=== PATIENT | male | born 1985 | race African-American/Black ===

== ENCOUNTER 2016-09-29 18:32 | Emergency (ER) | payer SELFPAY ==
[2016-09-29] MEDS ORDERED: Ketorolac 30 MG/ML SDV IVPUSH ONE (19:08)
[2016-09-29] MEDS ORDERED: Sodium Chloride 0.9% 10 ML Syringe FLUSH PRN (19:08)
[2016-09-29] MEDS ORDERED: Sodium Chloride 0.9% 2.5 ML Syringe FLUSH PRN (19:08)
[2016-09-29] MEDS ORDERED: Sodium Chloride 0.9% 1,000 ML IV ONE (19:08)
--- NOTE | 2016-09-29 19:12 | EDM.PDOC ---
ED HPI GENERAL MEDICAL PROBLEM - General Chief Complaint: Headache Stated Complaint: HEADACHE/DEHYDRATED Time Seen by Provider: 09/29/16 18:58 - History of Present Illness INITIAL COMMENTS - FREE TEXT/NARRATIVE: HISTORY AND PHYSICAL: History of present illness: The patient is a 30-year-old man who has no provider and no stated medical problems who presents with 2 complaints; first he has had a headache at his temples for 2 days which he says is very dull nonradiating and not associated with fever nausea vomiting upper respiratory symptoms or any other complaints. He rates it as a 2/10. He has not taken any [id number] medications to try to help it. He also presents with a five-month history of polyuria polydipsia and no weight loss of 40 pounds. He denies any abdominal complaints and says he' s been eating his meals and not trying to lose weight. He also complains of some tooth pain at the right upper mouth area but there is no swelling. The patient states that with all these problems he has not sought any medical treatment until today and there is nothing in particular that is changed these symptoms other than the slight headache that prompted him come in. He has no muscle weakness no chest pain no shortness of breath no fevers or chills Review of systems: As per history of present illness and below otherwise all systems reviewed and negative. Past medical history: As per history of present illness and as reviewed below otherwise noncontributory. Surgical history: As per history of present illness and as reviewed below otherwise noncontributory. Social history: No reported history of drug or alcohol abuse. Family history: As per history of present illness and as reviewed below otherwise noncontributory. Physical exam: General: Well-developed thin man who is nontoxic and speaking clearly and easily in ED. He is not in any distress HEENT: Atraumatic, normocephalic, pupils reactive, negative for conjunctival pallor or scleral icterus, mucous membranes moist, throat clear, neck supple, nontender, trachea midline. There is no nuchal rigidity or cervical adenopathy, there is no sinus tenderness on palpation, there is no TMJ tenderness, there is mild tenderness at the temples bilaterally left greater than right without any soft tissue swelling or temporal artery tenderness. There is a dental cavity noted at the right upper maxillary area without swelling or facial swelling. Lungs: Clear to auscultation, breath sounds equal bilaterally, chest nontender. Heart: S1S2, regular, negative for clicks, rubs, or JVD. Abdomen: Soft, nondistended, nontender. NABS Genitourinary: Deferred. Rectal: Deferred. Extremities: Atraumatic, negative for cords or calf pain. Neurovascular unremarkable. Neuro: Awake, alert, oriented. Cranial nerves II through XII unremarkable. Cerebellum unremarkable. Motor and sensory unremarkable throughout. Exam nonfocal. Diagnostics: CBC CMP UA serum ketones Therapeutics: IV fluids Toradol 2026: Case was discussed with our hospitalist who agrees he does not need admission but does need to have a hemoglobin A1c sent to be checked in the clinic and we can start him on Glucophage 1000 mg twice a day. I've advised the patient that he is a diabetic and he meets followup in the clinic and that he needs to start these medications. I advised him on diet and things to watch out for and reasons to return to the ED. I've also advised him to use Tylenol or prescribed ibuprofen for his headaches and if they persisted they can also be discussed with primary care. Impression: Headache, new onset diabetes without acidosis or ketosis stable Definitive disposition and diagnosis as appropriate pending reevaluation and review of above. Headache Pain Score (Numeric/FACES): 3 - Related Data Allergies Allergy/AdvReac Type Severity Reaction Status Date / Time No Known Allergies Allergy Verified 09/29/16 18:41 Home Meds: Home Meds . [No Known Home Meds] 09/29/16 [History] Past Medical History - Past Health History Medical/Surgical History: Denies Medical/Surgical History Social & Family History - Family History Family Medical History: Noncontributory - Tobacco Use Smoking Status *Q: Never Smoker Second Hand Smoke Exposure: No - Caffeine Use Caffeine Use: Reports: Coffee, Soda Caffeine Use Comment: 2 cup per day - Alcohol Use Days Per Week of Alcohol Use: 2 Number of Drinks Per Day: 2 Total Drinks Per Week: 4 - Recreational Drug Use Recreational Drug Use: No ED ROS GENERAL - Review of Systems Review Of Systems: ROS reveals no pertinent complaints other than HPI. ED EXAM, GENERAL - Physical Exam Exam: See Below (See dictation) Course - Vital Signs Last Recorded V/S: Last Vital Signs Temp 36.4 C 09/29/16 18:41 Pulse 65 09/29/16 18:41 Resp 18 09/29/16 18:41 BP 154/88 H 09/29/16 18:41 Pulse Ox 98 09/29/16 18:41 - Orders/Labs/Meds Orders: Active Orders 24 hr Category Date Time Status GLYCOSYLATED HEMOGLOBIN,HGBA1C [CHEM] Stat Lab 09/29/16 20:27 Ordered Sodium Chloride 0.9% [Saline Flush] Med 09/29/16 19:08 Active 10 ml FLUSH ASDIRECTED PRN Sodium Chloride 0.9% [Saline Flush] Med 09/29/16 19:08 Active 2.5 ml FLUSH ASDIRECTED PRN Saline Lock Insert [OM.PC] Stat Oth 09/29/16 19:08 Ordered Medication Orders Sodium Chloride (Saline Flush) 10 ml FLUSH ASDIRECTED PRN PRN Reason: Keep Vein Open Last Admin: 09/29/16 19:18 Dose: 10 ml Sodium Chloride (Saline Flush) 2.5 ml FLUSH ASDIRECTED PRN PRN Reason: Keep Vein Open Last Admin: 09/29/16 19:18 Dose: 2.5 ml Labs: Laboratory Tests 09/29/16 09/29/16 09/29/16 Range/Units 19:05 19:11 19:11 WBC 5.19 (4.0-11.0) K/uL RBC 4.83 (4.50-5.90) M/uL Hgb 14.0 (13.0-17.0) g/dL Hct 39.1 (38.0-50.0) % MCV 81.0 (80.0-98.0) fL MCH 29.0 (27.0-32.0) pg MCHC 35.8 (31.0-37.0) g/dL RDW Std Deviation 36.9 (28.0-62.0) fl RDW Coeff of Chuck 13 (11.0-15.0) % Plt Count 264 (150-400) K/uL MPV 10.70 (7.40-12.00) fL Neut % (Auto) 45.8 L (48.0-80.0) % Lymph % (Auto) 43.4 H (16.0-40.0) % [place] % (Auto) 8.3 (0.0-15.0) % Eos % (Auto) 1.9 (0.0-7.0) % Baso % (Auto) 0.6 (0.0-1.5) % Neut # (Auto) 2.4 (1.4-5.7) K/uL Lymph # (Auto) 2.3 (0.6-2.4) K/uL [place] # (Auto) 0.4 (0.0-0.8) K/uL Eos # (Auto) 0.1 (0.0-0.7) K/uL Baso # (Auto) 0.0 (0.0-0.1) K/uL Nucleated RBC % 0.0 /100WBC Nucleated RBCs # 0 K/uL Sodium 133 L (136-146) mmol/L Potassium 4.2 (3.5-5.1) mmol/L Chloride 101 (98-110) mmol/L Carbon Dioxide 24 (21-31) mmol/L BUN 8 (6.0-23.0) mg/dL Creatinine 0.9 (0.6-1.5) mg/dL Est Cr Clr Drug Dosing 123.20 mL/min Estimated GFR (MDRD) > 60.0 ml/min Glucose 329 H (60-110) mg/dL Calcium 8.9 (8.8-10.8) mg/dL Total Bilirubin 0.8 (0.1-1.5) mg/dL AST 18 (5-40) IU/L ALT 14 (8-54) IU/L Alkaline Phosphatase 60 (40-150) Total Protein 7.0 (6.0-8.0) g/dL Albumin 4.1 (3.5-5.0) g/dL Globulin 2.9 (2.0-3.5) g/dL Albumin/Globulin Ratio 1.4 (1.3-2.8) Urine Color YELLOW Urine Appearance CLEAR Urine pH 5.5 (5.0-8.0) Ur Specific [place] 1.010 (1.001-1.035) Urine Protein NEGATIVE (NEGATIVE) mg/dL Urine Glucose (UA) >=1000 (NEGATIVE) mg/dL Urine Ketones 15 H (NEGATIVE) mg/dL Urine Occult Blood NEGATIVE (NEGATIVE) Urine Nitrite NEGATIVE (NEGATIVE) Urine Bilirubin NEGATIVE (NEGATIVE) Urine Urobilinogen 0.2 (<2.0) EU/dL Ur Leukocyte Esterase NEGATIVE (NEGATIVE) Urine RBC 0-2 (0-2/HPF) Urine WBC 0-1 (0-5/HPF) Ur Epithelial Cells RARE (NONE-FEW) Urine Bacteria RARE (NEGATIVE) Ketones (NEG) 09/29/16 Range/Units 19:11 WBC (4.0-11.0) K/uL RBC (4.50-5.90) M/uL Hgb (13.0-17.0) g/dL Hct (38.0-50.0) % MCV (80.0-98.0) fL MCH (27.0-32.0) pg MCHC (31.0-37.0) g/dL RDW Std Deviation (28.0-62.0) fl RDW Coeff of Chuck (11.0-15.0) % Plt Count (150-400) K/uL MPV (7.40-12.00) fL Neut % (Auto) (48.0-80.0) % Lymph % (Auto) (16.0-40.0) % [place] % (Auto) (0.0-15.0) % Eos % (Auto) (0.0-7.0) % Baso % (Auto) (0.0-1.5) % Neut # (Auto) (1.4-5.7) K/uL Lymph # (Auto) (0.6-2.4) K/uL [place] # (Auto) (0.0-0.8) K/uL Eos # (Auto) (0.0-0.7) K/uL Baso # (Auto) (0.0-0.1) K/uL Nucleated RBC % /100WBC Nucleated RBCs # K/uL Sodium (136-146) mmol/L Potassium (3.5-5.1) mmol/L Chloride (98-110) mmol/L Carbon Dioxide (21-31) mmol/L BUN (6.0-23.0) mg/dL Creatinine (0.6-1.5) mg/dL Est Cr Clr Drug Dosing mL/min Estimated GFR (MDRD) ml/min Glucose (60-110) mg/dL Calcium (8.8-10.8) mg/dL Total Bilirubin (0.1-1.5) mg/dL AST (5-40) IU/L ALT (8-54) IU/L Alkaline Phosphatase (40-150) Total Protein (6.0-8.0) g/dL Albumin (3.5-5.0) g/dL Globulin (2.0-3.5) g/dL Albumin/Globulin Ratio (1.3-2.8) Urine Color Urine Appearance Urine pH (5.0-8.0) Ur Specific [place] (1.001-1.035) Urine Protein (NEGATIVE) mg/dL Urine Glucose (UA) (NEGATIVE) mg/dL Urine Ketones (NEGATIVE) mg/dL Urine Occult Blood (NEGATIVE) Urine Nitrite (NEGATIVE) Urine Bilirubin (NEGATIVE) Urine Urobilinogen (<2.0) EU/dL Ur Leukocyte Esterase (NEGATIVE) Urine RBC (0-2/HPF) Urine WBC (0-5/HPF) Ur Epithelial Cells (NONE-FEW) Urine Bacteria (NEGATIVE) Ketones NEGATIVE (NEG) Meds: Medications Generic Name Dose Route Start Last Admin Trade Name Freq PRN Reason Stop Dose Admin Sodium Chloride 10 ml 09/29/16 19:08 09/29/16 19:18 Saline Flush FLUSH 10 ml ASDIRECTED PRN Administration Keep Vein Open Sodium Chloride 2.5 ml 09/29/16 19:08 09/29/16 19:18 Saline Flush FLUSH 2.5 ml ASDIRECTED PRN Administration Keep Vein Open Discontinued Medications Generic Name Dose Route Start Last Admin Trade Name Freq PRN Reason Stop Dose Admin Sodium Chloride 1,000 mls @ 999 mls/hr 09/29/16 19:08 09/29/16 19:17 Normal Saline IV 09/29/16 20:08 999 mls/hr STAT ONE Administration Ketorolac Tromethamine 30 mg 09/29/16 19:08 09/29/16 19:17 Toradol IVPUSH 09/29/16 19:09 30 mg ONETIME ONE Administration Departure - Departure Time of Disposition: 20:29 Disposition: Home, Self-Care 01 Condition: good Clinical Impression: Diabetes mellitus, new onset Headache Qualifiers: Headache type: unspecified Headache chronicity pattern: acute headache Intractability: not intractable Qualified Code(s): R51 - Headache Forms: ED Department Discharge Additional Instructions: The following information is given to patients seen in the emergency department who are being discharged to home. This information is to outline your options for follow-up care. We provide all patients seen in our emergency department with a follow-up referral. The need for follow-up, as well as the timing and circumstances, are variable depending upon the specifics of your emergency department visit. If you don't have a primary care physician on staff, we will provide you with a referral. We always advise you to contact your personal physician following an emergency department visit to inform them of the circumstance of the visit and for follow-up with them and/or the need for any referrals to a consulting specialist. The emergency department will also refer you to a specialist when appropriate. This referral assures that you have the opportunity for followup care with a specialist. All of these measure are taken in an effort to provide you with optimal care, which includes your followup. Under all circumstances we always encourage you to contact your private physician who remains a resource for coordinating your care. When calling for followup care, please make the office aware that this follow-up is from your recent emergency room visit. If for any reason you are refused follow-up, please contact the [facility] emergency department at and ask to speak to the emergency department charge nurse. [facility] Primary care- [place] [address] Please call the clinic tomorrow for an expedited followup and please mention that you're in the emergency department and need a followup appointment. Please take medications as prescribed and try to watch your diet avoiding sweets juices and other concentrated sugars. Take [id number] Tylenol or prescribed ibuprofen for your headaches and return here as needed and as discussed - My Orders Last 24 Hours: My Active Orders 09/29/16 19:08 Sodium Chloride 0.9% [Saline Flush] 10 ml FLUSH ASDIRECTED PRN Sodium Chloride 0.9% [Saline Flush] 2.5 ml FLUSH ASDIRECTED PRN Saline Lock Insert [OM.PC] Stat 09/29/16 20:27 GLYCOSYLATED HEMOGLOBIN,HGBA1C [CHEM] Stat - Assessment/Plan Last 24 Hours: My Active Orders 09/29/16 19:08 Sodium Chloride 0.9% [Saline Flush] 10 ml FLUSH ASDIRECTED PRN Sodium Chloride 0.9% [Saline Flush] 2.5 ml FLUSH ASDIRECTED PRN Saline Lock Insert [OM.PC] Stat 09/29/16 20:27 GLYCOSYLATED HEMOGLOBIN,HGBA1C [CHEM] Stat
[2016-09-29 19:52] LABS: CHLORIDE,CL 101 mmol/L (98-110); SODIUM,NA 133 mmol/L (136-146)
[2016-09-29 20:54] VITALS: BP 131/78
== END 2016-09-29 20:54 | disposition home or self-care (01) ==
LOC: MW.ED 18:32
DX: R51 Headache (principal); E11.9 Type 2 diabetes mellitus without complications
CPT/HCPCS: 36415; 80053; 81001; 82009; 83036; 85025; 96361; 96374; 99284; J1885; J7040

== ENCOUNTER → 2016-10-08 | Outpatient (CLI) | payer SELFPAY | LOC: MW.CHIM 07:31 | PROVIDERS: ATTEND Internal Medicine | DX: Z00.00 Encounter for general adult medical examination without abnormal findings (principal); E13.9 Other specified diabetes mellitus without complications | CPT/HCPCS: 36415; 80061; 84681 ==

== ENCOUNTER 2019-10-07 10:10 | Observation (INO) | payer SELFPAY ==
--- NOTE | 2019-10-07 10:35 | EDM.PDOC ---
ED HPI GENERAL MEDICAL PROBLEM - General Chief Complaint: Fever Stated Complaint: FEVER/CHILLS/WEAK Time Seen by Provider: 10/07/19 10:20 Source of Information: Reports: Patient History Limitations: Reports: No Limitations - History of Present Illness INITIAL COMMENTS - FREE TEXT/NARRATIVE: This 33 year old male is admitted to the ED with a chief complaint of bilateral flank pain (that has gotten better) with painful urination for the past two days. He also complains of fever and chills over the past two days with generalized weakness. He denies chest pain, cough or SOB. He denies any GI complaints at this time. He denies any other complaints. Onset: Gradual Duration: Intermittent Severity: Mild (to moderate) Associated Symptoms: Reports: Fever/Chills, Weakness. Denies: Chest Pain, Cough , Nausea/Vomiting, Shortness of Breath Bilateral Flank Pain Score (Numeric/FACES): 5 - Related Data Allergies Allergy/AdvReac Type Severity Reaction Status Date / Time No Known Allergies Allergy Verified 10/07/19 10:22 Home Meds: Home Meds metFORMIN HCl [Glucophage] 2,000 mg PO BID 10/07/19 [History] Past Medical History - Past Health History Medical/Surgical History: Denies Medical/Surgical History Social & Family History - Family History Family Medical History: Noncontributory - Caffeine Use Caffeine Use: Reports: Coffee, Soda Caffeine Use Comment: 2 cup per day ED ROS GENERAL - Review of Systems Review Of Systems: See Below Constitutional: Reports: Fever, Chills, Weakness HEENT: Reports: No Symptoms Respiratory: Reports: No Symptoms Cardiovascular: Reports: No Symptoms Endocrine: Reports: No Symptoms GI/Abdominal: Reports: No Symptoms. Denies: Abdominal Pain : Reports: Flank Pain (bilateral), Pain (painful urination.) Musculoskeletal: Reports: No Symptoms Skin: Reports: No Symptoms ED EXAM, GENERAL - Physical Exam Exam: See Below Exam Limited By: No Limitations General Appearance: Alert, WD/WN, No Apparent Distress Ears: Normal External Exam, Normal Canal, Normal TMs Ear Exam: Bilateral Ear: Auricle Normal, Canal Normal, TM normal Nose: Normal Inspection, Normal Mucosa Throat/Mouth: Normal Inspection, Normal Oropharynx Head: Atraumatic, Normocephalic Neck: Normal Inspection, Supple, Full Range of Motion Respiratory/Chest: No Respiratory Distress, Lungs Clear, Normal Breath Sounds, Chest Non-Tender Cardiovascular: Normal Peripheral Pulses, Regular Rate, Rhythm, No Edema, No Murmur Peripheral Pulses: 3+: Radial (L), Radial (R), Dorsalis Pedis (L), Dorsalis Pedis (R) GI/Abdominal: Normal Bowel Sounds, Soft, Non-Tender, No Organomegaly, No Abnormal Bruit, No Mass (Male) Exam: Deferred Rectal (Males) Exam: Deferred Back Exam: No: CVA Tenderness (L), Paraspinal Tenderness Extremities: Normal Inspection, Normal Range of Motion, Non-Tender, Normal Capillary Refill, No Pedal Edema Neurological: Alert, Oriented, CN II-XII Intact, Normal Cognition, Normal Gait, Normal Reflexes, No Motor/Sensory Deficits Psychiatric: Normal Affect, Normal Mood Skin Exam: Warm, Dry, Intact, Normal Color, No Rash Course - Vital Signs Text/Narrative:: I talked with Dr. Pineda at 1:42PM. We will admitted with a diagnosis of pyelonephritis. The patient agrees with the admission. Last Recorded V/S: Last Vital Signs Temp 97.7 F 10/07/19 13:18 Pulse 81 10/07/19 13:18 Resp 16 10/07/19 13:18 BP 120/76 10/07/19 13:18 Pulse Ox 96 10/07/19 13:18 - Orders/Labs/Meds Orders: Active Orders 24 hr Category Date Time Status CULTURE BLOOD [BC] Stat Lab 10/07/19 13:46 Ordered CULTURE BLOOD [BC] Stat Lab 10/07/19 13:46 Ordered Blood Culture x2 Reflex Set [OM.PC] Stat Oth 10/07/19 13:46 Ordered Labs: Laboratory Tests 10/07/19 10/07/19 10/07/19 Range/Units 10:20 10:42 10:42 WBC 19.09 H (4.0-11.0) K/uL RBC 5.02 (4.50-5.90) M/uL Hgb 14.4 (13.0-17.0) g/dL Hct 41.4 (38.0-50.0) % MCV 82.5 (80.0-98.0) fL MCH 28.7 (27.0-32.0) pg MCHC 34.8 (31.0-37.0) g/dL RDW Std Deviation 36.9 (28.0-62.0) fl RDW Coeff of Chuck 12 (11.0-15.0) % Plt Count 226 (150-400) K/uL MPV 10.10 (7.40-12.00) fL Neut % (Auto) 83.4 H (48.0-80.0) % Lymph % (Auto) 8.7 L (16.0-40.0) % [place] % (Auto) 7.6 (0.0-15.0) % Eos % (Auto) 0.1 (0.0-7.0) % Baso % (Auto) 0.2 (0.0-1.5) % Neut # (Auto) 15.9 H (1.4-5.7) K/uL Lymph # (Auto) 1.7 (0.6-2.4) K/uL [place] # (Auto) 1.5 H (0.0-0.8) K/uL Eos # (Auto) 0.0 (0.0-0.7) K/uL Baso # (Auto) 0.0 (0.0-0.1) K/uL Nucleated RBC % 0.0 /100WBC Nucleated RBCs # 0 K/uL Sodium 136 (136-148) mmol/L Potassium 3.5 (3.5-5.1) mmol/L Chloride 99 (98-107) mmol/L Carbon Dioxide 27.4 (21.0-32.0) mmol/L BUN 15 (7.0-18.0) mg/dL Creatinine 1.1 (0.8-1.3) mg/dL Est Cr Clr Drug Dosing 104.84 mL/min Estimated GFR (MDRD) > 60.0 ml/min Glucose 166 H (74-106) mg/dL Calcium 8.2 L (8.5-10.1) mg/dL Magnesium 1.6 L (1.8-2.4) mg/dL Total Bilirubin 1.3 H (0.2-1.0) mg/dL AST 21 (15-37) IU/L ALT 57 (14-63) IU/L Alkaline Phosphatase 63 (46-116) U/L Total Protein 7.3 (6.4-8.2) g/dL Albumin 3.4 (3.4-5.0) g/dL Globulin 3.9 (2.6-4.0) g/dL Albumin/Globulin Ratio 0.9 (0.9-1.6) Urine Color YELLOW Urine Appearance CLOUDY Urine pH 6.0 (5.0-8.0) Ur Specific [place] 1.025 (1.001-1.035) Urine Protein 100 H (NEGATIVE) mg/dL Urine Glucose (UA) NEGATIVE (NEGATIVE) mg/dL Urine Ketones NEGATIVE (NEGATIVE) mg/dL Urine Occult Blood LARGE H (NEGATIVE) Urine Nitrite NEGATIVE (NEGATIVE) Urine Bilirubin NEGATIVE (NEGATIVE) Urine Urobilinogen 0.2 (<2.0) EU/dL Ur Leukocyte Esterase LARGE H (NEGATIVE) Urine RBC TOO NUMEROUS TO CT (0-2/HPF) Urine WBC TO NUMEROUS TO COUNT H (0-5/HPF) Ur Epithelial Cells FEW (NONE-FEW) Urine Bacteria 2+ H (NEGATIVE) Urine Mucus LIGHT (NONE-MOD) Meds: Medications Discontinued Medications Generic Name Dose Route Start Last Admin Trade Name Markq PRN Reason Stop Dose Admin Ceftriaxone Sodium 1 gm 10/07/19 13:46 Rocephin IVPUSH 10/07/19 13:47 ONETIME ONE Sodium Chloride 1,000 mls @ 999 mls/hr 10/07/19 11:07 10/07/19 11:50 Normal Saline IV 10/07/19 12:07 999 mls/hr STAT ONE Administration Levofloxacin/Dextrose 750 mg/ 150 mls @ 100 mls/hr 10/07/19 13:45 Premix IV Q24H JAMAL Iopamidol 100 ml 10/07/19 12:08 10/07/19 12:09 Isovue Multipack-370 (76%) IVPUSH 10/07/19 12:09 100 ml ONETIME ONE Administration Departure - Departure Time of Disposition: 13:50 Disposition: Refer to Observation Condition: Fair Clinical Impression: Pyelonephritis, acute - Discharge Information *PRESCRIPTION DRUG MONITORING PROGRAM REVIEWED*: Yes *COPY OF PRESCRIPTION DRUG MONITORING REPORT IN PATIENT NEISHA: Yes Referrals: PCP,None [Primary Care Provider] - Sepsis Event Note - Focused Exam Vital Signs: Vital Signs Temp Pulse Resp BP Pulse Ox 10/07/19 13:18 97.7 F 81 16 120/76 96 10/07/19 10:22 97.9 F 83 16 145/76 H 98 Date Exam was Performed: 10/07/19 Time Exam was Performed: 13:47 - My Orders Last 24 Hours: My Active Orders 10/07/19 13:46 CULTURE BLOOD [BC] Stat CULTURE BLOOD [BC] Stat Blood Culture x2 Reflex Set [OM.PC] Stat - Assessment/Plan Last 24 Hours: My Active Orders 10/07/19 13:46 CULTURE BLOOD [BC] Stat CULTURE BLOOD [BC] Stat Blood Culture x2 Reflex Set [OM.PC] Stat
[2019-10-07] MEDS ORDERED: Sodium Chloride 0.9% 1,000 ML IV ONE (11:07)
[2019-10-07 11:13] LABS: BLOOD UREA NITROGEN,BUN 15 mg/dL (7.0-18.0); CARBON DIOXIDE,CO2 27.4 mmol/L (21.0-32.0); CHLORIDE,CL 99 mmol/L (98-107); GLUCOSE RANDOM 166 mg/dL (74-106); POTASSIUM,K 3.5 mmol/L (3.5-5.1); SODIUM,NA 136 mmol/L (136-148)
--- NOTE | 2019-10-07 11:18 | CR ---
Chest: 2 views of the chest were obtained. Comparison: No prior chest imaging is available. Heart size and mediastinum are normal. Lungs are clear with no acute parenchymal change. Bony structures are unremarkable. Impression: 1. Nothing acute is seen on 2 view chest x-ray. Diagnostic code #1 This report was dictated in MDT
[2019-10-07] MEDS ORDERED: Iopamidol 755 MG/ML 200 ML Multipack Bottle IVPUSH ONE (12:08)
--- NOTE | 2019-10-07 12:38 | CT ---
CT abdomen and pelvis Technique: Multiple axial sections were obtained from above the dome of the diaphragm inferiorly through the pubic symphysis. Intravenous contrast was utilized. Delayed images were obtained through the bladder. Findings: Visualized lung bases show nothing acute. Liver contains no focal parenchymal abnormality. Spleen appears within normal limits. Adrenal glands show no nodule. Pancreas shows no abnormality. Kidneys show symmetric contrast enhancement without hydronephrosis or mass. Aorta shows no aneurysm. No retroperitoneal adenopathy or mesenteric abnormalities are seen. Fat-containing umbilical hernia is noted. No pelvic mass or adenopathy is seen. Bladder wall is slightly thickened which could relate to cystitis as well as being under distended. No free fluid or inflammatory change is seen. Appendix is seen which is normal in size. Slight increased stool is noted within the colon. Bone window settings were reviewed. No acute osseous finding is appreciated. Impression: 1. Bladder wall thickening either due to under distention or cystitis. 2. Mild increased stool throughout the colon. 3. No acute abnormality is otherwise seen on CT study of the abdomen and pelvis. Diagnostic code #2 This report was dictated in MDT
[2019-10-07] MEDS ORDERED: Levofloxacin/Dextrose 5%-Water 750 MG in Premix Bag 1 BAG IV SCH (13:45)
[2019-10-07] MEDS ORDERED: cefTRIAXone 1 GM Vial IVPUSH ONE (13:46)
[2019-10-07] MEDS ORDERED: cefTRIAXone 1 GM in Premix Bag 1 BAG IV ONE (14:13)
[2019-10-07] MEDS ORDERED: Albuterol/Ipratropium 3.0-0.5 MG/3 ML Neb Soln NEB PRN (14:30)
[2019-10-07] MEDS ORDERED: Ketorolac 30 MG/ML SDV IV PRN (14:30)
[2019-10-07] MEDS ORDERED: Ondansetron 4 MG/2 ML SDV IVPUSH PRN (14:30)
--- NOTE | 2019-10-07 14:37 | PCM.HP.2 ---
H&P History of Present Illness - General Date of Service: 10/07/19 Admit Problem/Dx: Admission Diagnosis/Problem Admission Diagnosis/Problem Acute pyelonephritis - History of Present Illness Initial Comments - Free Text/Narative: This 33 year old male with PMH of DM is admitted to the ED with a chief complaint of bilateral flank pain, lower abdominal pain, along with painful urination for the past two days. Patient also complains of fever, chills, decreased appetite over the past two days with generalized weakness. He denies chest pain, cough or SOB. In the ER CT scan abdomen showed possible cystitis. UA was positive for UTI. WBC count was elevated. Rest of the labs were unremarkable. Patient is being admitted for management of pyelonephritis. Onset of Symptoms: Reports: Gradual Duration of Symptoms: Reports: Day(s): Location: Reports: Abdomen, Back Quality: Reports: Burning, Dull Severity: Moderate Improves with: Reports: None Worsens with: Reports: None Associated Symptoms: Reports: Loss of Appetite, Malaise Bilateral Flank Pain Score (Numeric/FACES): 5 - Related Data Allergies/Adverse Reactions: Allergies Allergy/AdvReac Type Severity Reaction Status Date / Time No Known Allergies Allergy Verified 10/07/19 15:59 Home Medications: Home Meds metFORMIN HCl [Glucophage] 2,000 mg PO BID 10/07/19 [History] Past Medical History - Past Health History Medical/Surgical History: Denies Medical/Surgical History HEENT History: Reports: None Cardiovascular History: Reports: None Respiratory History: Reports: None Gastrointestinal History: Reports: None Genitourinary History: Reports: None Musculoskeletal History: Reports: None Neurological History: Reports: None Psychiatric History: Reports: None Endocrine/Metabolic History: Reports: Diabetes, Type II Hematologic History: Reports: None Immunologic History: Reports: None Oncologic (Cancer) History: Reports: None Dermatologic History: Reports: None - Infectious Disease History Infectious Disease History: Reports: None - Past Surgical History Head Surgeries/Procedures: Reports: None Endocrine Surgical History: Reports: None Social & Family History - Family History Family Medical History: Noncontributory - Tobacco Use Smoking Status *Q: Never Smoker Second Hand Smoke Exposure: No - Caffeine Use Caffeine Use: Reports: Coffee, Soda Caffeine Use Comment: 2 cup per day - Recreational Drug Use Recreational Drug Use: No H&P Review of Systems - Review of Systems: Review Of Systems: See Below General: Reports: Fever, Chills, Malaise, Weakness HEENT: Denies: Dysphasia, Ear Pain, Sore Throat, Vertigo Pulmonary: Denies: Shortness of Breath, Wheezing Cardiovascular: Denies: Chest Pain, Palpitations Gastrointestinal: Reports: Abdominal Pain, Anorexia, Constipation, Decreased Appetite, Nausea. Denies: Black Stool, Bloody Stool, Diarrhea, Hematochezia, Stool Incontinence Genitourinary: Reports: Dysuria, Frequency, Burning, Pain Musculoskeletal: Denies: Neck Pain, Shoulder Pain Skin: Denies: Cyanosis, Jaundice, Mottled Psychiatric: Denies: Confusion, Depression, Mood Lability Neurological: Denies: Confusion, Dizziness, Headache Exam - Exam Exam: See Below - Vital Signs Vital Signs: Last Vital Signs Temp 36.5 C 10/07/19 13:18 Pulse 81 10/07/19 13:18 Resp 16 10/07/19 13:18 BP 120/76 10/07/19 13:18 Pulse Ox 96 10/07/19 13:18 Weight: 84.368 kg - Exam General: Alert, Oriented HEENT: Conjunctiva Clear Neck: Supple, Trachea Midline Lungs: Clear to Auscultation, Normal Respiratory Effort Cardiovascular: Regular Rate, Regular Rhythm GI/Abdominal Exam: Normal Bowel Sounds, Soft, Tender. No: Rebound, Hepatomegaly , Splenomegaly - Patient Data Lab Results Last 24 hrs: Laboratory Results - last 24 hr 10/07/19 10/07/19 10/07/19 Range/Units 10:20 10:42 10:42 WBC 19.09 H (4.0-11.0) K/uL RBC 5.02 (4.50-5.90) M/uL Hgb 14.4 (13.0-17.0) g/dL Hct 41.4 (38.0-50.0) % MCV 82.5 (80.0-98.0) fL MCH 28.7 (27.0-32.0) pg MCHC 34.8 (31.0-37.0) g/dL RDW Std Deviation 36.9 (28.0-62.0) fl RDW Coeff of Chuck 12 (11.0-15.0) % Plt Count 226 (150-400) K/uL MPV 10.10 (7.40-12.00) fL Neut % (Auto) 83.4 H (48.0-80.0) % Lymph % (Auto) 8.7 L (16.0-40.0) % [place] % (Auto) 7.6 (0.0-15.0) % Eos % (Auto) 0.1 (0.0-7.0) % Baso % (Auto) 0.2 (0.0-1.5) % Neut # (Auto) 15.9 H (1.4-5.7) K/uL Lymph # (Auto) 1.7 (0.6-2.4) K/uL [place] # (Auto) 1.5 H (0.0-0.8) K/uL Eos # (Auto) 0.0 (0.0-0.7) K/uL Baso # (Auto) 0.0 (0.0-0.1) K/uL Nucleated RBC % 0.0 /100WBC Nucleated RBCs # 0 K/uL Sodium 136 (136-148) mmol/L Potassium 3.5 (3.5-5.1) mmol/L Chloride 99 (98-107) mmol/L Carbon Dioxide 27.4 (21.0-32.0) mmol/L BUN 15 (7.0-18.0) mg/dL Creatinine 1.1 (0.8-1.3) mg/dL Est Cr Clr Drug Dosing 104.84 mL/min Estimated GFR (MDRD) > 60.0 ml/min Glucose 166 H (74-106) mg/dL Calcium 8.2 L (8.5-10.1) mg/dL Magnesium 1.6 L (1.8-2.4) mg/dL Total Bilirubin 1.3 H (0.2-1.0) mg/dL AST 21 (15-37) IU/L ALT 57 (14-63) IU/L Alkaline Phosphatase 63 (46-116) U/L Total Protein 7.3 (6.4-8.2) g/dL Albumin 3.4 (3.4-5.0) g/dL Globulin 3.9 (2.6-4.0) g/dL Albumin/Globulin Ratio 0.9 (0.9-1.6) Urine Color YELLOW Urine Appearance CLOUDY Urine pH 6.0 (5.0-8.0) Ur Specific [place] 1.025 (1.001-1.035) Urine Protein 100 H (NEGATIVE) mg/dL Urine Glucose (UA) NEGATIVE (NEGATIVE) mg/dL Urine Ketones NEGATIVE (NEGATIVE) mg/dL Urine Occult Blood LARGE H (NEGATIVE) Urine Nitrite NEGATIVE (NEGATIVE) Urine Bilirubin NEGATIVE (NEGATIVE) Urine Urobilinogen 0.2 (<2.0) EU/dL Ur Leukocyte Esterase LARGE H (NEGATIVE) Urine RBC TOO NUMEROUS TO CT (0-2/HPF) Urine WBC TO NUMEROUS TO COUNT H (0-5/HPF) Ur Epithelial Cells FEW (NONE-FEW) Urine Bacteria 2+ H (NEGATIVE) Urine Mucus LIGHT (NONE-MOD) Result Diagrams: 10/07/19 10:42 10/07/19 10:42 Sepsis Event Note - Evaluation Sepsis Screening Result: No Definite Risk - Focused Exam Vital Signs: Vital Signs Temp Pulse Resp BP Pulse Ox 10/07/19 13:18 36.5 C 81 16 120/76 96 10/07/19 10:22 36.6 C 83 16 145/76 H 98 Date Exam was Performed: 10/07/19 Time Exam was Performed: 20:34 - Problem List (1) Pyelonephritis, acute SNOMED Code(s): 74679885 ICD Code: N10 - ACUTE PYELONEPHRITIS Status: Acute Current Visit: Yes (2) Diabetes SNOMED Code(s): 84343040 ICD Code: E11.9 - TYPE 2 DIABETES MELLITUS WITHOUT COMPLICATIONS Status: Acute Current Visit: Yes Problem List Initiated/Reviewed/Updated: Yes Orders Last 24hrs: Active Orders 24 hr Category Date Time Status Admission Status [Patient Status] [ADT] Stat ADT 10/07/19 13:51 Active Ambulate [RC] ASDIRECTED Care 10/07/19 14:30 Ordered Antiembolic Devices [RC] PER UNIT ROUTINE Care 10/07/19 14:32 Ordered Oxygen Therapy [RC] PRN Care 10/07/19 14:30 Ordered RT Aerosol Therapy [RC] ASDIRECTED Care 10/07/19 14:33 Ordered VTE/DVT Education [RC] PER UNIT ROUTINE Care 10/07/19 14:30 Ordered Vital Signs [RC] Q4H Care 10/07/19 14:30 Ordered Regular Diet [DIET] Diet 10/07/19 Dinner Ordered CULTURE BLOOD [BC] Stat Lab 10/07/19 14:05 Received CULTURE BLOOD [BC] Stat Lab 10/07/19 14:15 Received CULTURE URINE [RM] Stat Lab 10/07/19 14:30 Ordered Albuterol/Ipratropium [DuoNeb 3.0-0.5 MG/3 ML] Med 10/07/19 14:30 Ordered 3 ml NEB Q4HRRT PRN Ketorolac [Toradol] Med 10/07/19 14:30 Ordered 30 mg IV Q6H PRN Ondansetron [Zofran] Med 10/07/19 14:30 Ordered 4 mg IVPUSH Q4H PRN Sodium Chloride 0.9% @ 125 MLS/HR (1000ml) Med 10/07/19 14:30 Ordered Sodium Chloride 0.9% [Normal Saline] 1,000 ml IV ASDIRECTED cefTRIAXone [Rocephin in Dextrose,Iso-Osm 1 GM/50 ML] 1 Med 10/07/19 14:13 Active gm Premix Bag 1 bag IV ONETIME cefTRIAXone [Rocephin in Dextrose,Iso-Osm 1 GM/50 ML] 1 Med 10/08/19 09:00 Ordered gm Premix Bag 1 bag IV Q24H Blood Culture x2 Reflex Set [OM.PC] Stat Oth 10/07/19 13:46 Ordered Sequential Compression Device [OM.PC] Per Unit Routine Oth 10/07/19 14:31 Ordered Resuscitation Status Routine Resus Stat 10/07/19 14:30 Ordered Medication Orders Albuterol/Ipratropium (Duoneb 3.0-0.5 Mg/3 Ml) 3 ml NEB Q4HRRT PRN PRN Reason: Shortness Of Breath/wheezing Ceftriaxone Sodium/Dextrose 1 (gm/ Premix) 50 mls @ 100 mls/hr IV ONETIME ONE Stop: 10/07/19 14:42 Last Admin: 10/07/19 14:18 Dose: 100 mls/hr Sodium Chloride (Normal Saline) 1,000 mls @ 125 mls/hr IV ASDIRECTED JAMAL Ceftriaxone Sodium/Dextrose 1 (gm/ Premix) 50 mls @ 100 mls/hr IV Q24H JAMAL Ketorolac Tromethamine (Toradol) 30 mg IV Q6H PRN PRN Reason: Pain (moderate 4-6) Ondansetron HCl (Zofran) 4 mg IVPUSH Q4H PRN PRN Reason: Nausea/Vomiting Assessment/Plan Comment:: 33 y/o M admitted for management o acute pyelonephritis No sepsis identified cont IV Rocephin f/u on blood cultures f/u on urine cultures start IV fluids for hydration Zofran for nausea Toradol for pain as needed Diabetic diet SSI medium dose Monitor and replete electrolytes as needed
[2019-10-07] MEDS ORDERED: Magnesium Oxide 400 MG Tab PO ONE (14:39)
[2019-10-07] MEDS: Sodium Chloride 0.9% 1,000 ML IV SCH ×2 (15:39→23:23)
[2019-10-07] MEDS: Insulin Aspart 100 Units/ML 3 ML Pen SUBCUT SCH (18:22)
[2019-10-08] MEDS: Sodium Chloride 0.9% 1,000 ML IV SCH (06:24)
[2019-10-08] MEDS: Insulin Aspart 100 Units/ML 3 ML Pen SUBCUT SCH ×2 (06:29→11:25)
[2019-10-08 06:40] LABS: BLOOD UREA NITROGEN,BUN 15 mg/dL (7.0-18.0); CARBON DIOXIDE,CO2 26.2 mmol/L (21.0-32.0); CHLORIDE,CL 108 mmol/L (98-107); GLUCOSE RANDOM 116 mg/dL (74-106); SODIUM,NA 141 mmol/L (136-148)
[2019-10-08] MEDS ORDERED: cefTRIAXone 1 GM in Premix Bag 1 BAG IV SCH (09:00)
[2019-10-08] MEDS ORDERED: Polyethylene Glycol 3350 Powder 17 GM Packet PO ONE (10:27)
--- NOTE | 2019-10-08 11:05 | PCM.DCSUM1 ---
Discharge Summary - Hospital Course Free Text/Narrative:: This 33 year old male with PMH of DM is admitted to the ED with a chief complaint of bilateral flank pain, lower abdominal pain, along with painful urination for the past two days. Patient also complains of fever, chills, decreased appetite over the past two days with generalized weakness. He denies chest pain, cough or SOB. In the ER CT scan abdomen showed possible cystitis. UA was positive for UTI. WBC count was elevated. Rest of the labs were unremarkable. Patient is being admitted for management of pyelonephritis. Patient was started on IV Rocephin, IV fluids, blood cultures and urine cultures were sent, for pain control patient was started on Toradol. Patients Leucocytosis resolved next day, he was afebrile, his symptoms were resolved, patient wanted to be discharged as he was feeling much better, , i spoke to him about pending urine and blood cultures and that we will give him a follow up call if anything shows up on his blood cultures. He got some laxatives for his constipation. Patient is medically stable for dc , he was recommended to fu with his PCP. Return if his symptoms got worse. - Discharge Data Discharge Date: 10/08/19 Discharge Disposition: Home, Self-Care 01 Condition: Good - Referral to Home Health Primary Care Physician: PCP None - Discharge Diagnosis/Problem(s) (1) Pyelonephritis, acute SNOMED Code(s): 87111080 ICD Code: N10 - ACUTE PYELONEPHRITIS Status: Acute Current Visit: Yes (2) Diabetes SNOMED Code(s): 54187527 ICD Code: E11.9 - TYPE 2 DIABETES MELLITUS WITHOUT COMPLICATIONS Status: Acute Current Visit: Yes - Discharge Plan *PRESCRIPTION DRUG MONITORING PROGRAM REVIEWED*: Yes *COPY OF PRESCRIPTION DRUG MONITORING REPORT IN PATIENT NEISHA: Yes Prescriptions/Med Rec: Ciprofloxacin HCl [Cipro] 500 mg PO Q12H 14 Days #28 tablet Home Medications: Home Meds metFORMIN HCl [Glucophage] 2,000 mg PO BID 10/07/19 [History] Ciprofloxacin HCl [Cipro] 500 mg PO Q12H 14 Days #28 tablet 10/08/19 [Rx] Patient Handouts: Pyelonephritis, Adult, [id number], Ciprofloxacin tablets Referrals: Mando Vazquez MD [Resident] - - Discharge Summary/Plan Comment DC Time >30 min.: No - Patient Data Vitals - Most Recent: Last Vital Signs Temp 37.3 C 10/08/19 07:20 Pulse 79 10/08/19 07:20 Resp 18 10/08/19 07:20 BP 140/82 10/08/19 07:20 Pulse Ox 97 10/08/19 07:20 Weight - Most Recent: 84.368 kg I&O - Last 24 hours: Intake & Output 10/07/19 10/08/19 10/08/19 22:59 06:59 14:59 Intake Total 2028 Output Total 1300 Balance 728 Lab Results - Last 24 hrs: Laboratory Results - last 24 hr 10/07/19 10/07/19 10/08/19 Range/Units 10:42 17:56 06:13 WBC 10.34 (4.0-11.0) K/uL RBC 4.78 (4.50-5.90) M/uL Hgb 13.6 (13.0-17.0) g/dL Hct 39.6 (38.0-50.0) % MCV 82.8 (80.0-98.0) fL MCH 28.5 (27.0-32.0) pg MCHC 34.3 (31.0-37.0) g/dL RDW Std Deviation 37.3 (28.0-62.0) fl RDW Coeff of [place] 12 (11.0-15.0) % Plt Count 204 (150-400) K/uL MPV 10.20 (7.40-12.00) fL Neut % (Auto) 78.1 (48.0-80.0) % Lymph % (Auto) 13.4 L (16.0-40.0) % [place] % (Auto) 7.1 (0.0-15.0) % Eos % (Auto) 1.1 (0.0-7.0) % Baso % (Auto) 0.3 (0.0-1.5) % Neut # (Auto) 8.1 H (1.4-5.7) K/uL Lymph # (Auto) 1.4 (0.6-2.4) K/uL [place] # (Auto) 0.7 (0.0-0.8) K/uL Eos # (Auto) 0.1 (0.0-0.7) K/uL Baso # (Auto) 0.0 (0.0-0.1) K/uL Nucleated RBC % 0.0 /100WBC Nucleated RBCs # 0 K/uL Sodium 136 (136-148) mmol/L Potassium 3.5 (3.5-5.1) mmol/L Chloride 99 (98-107) mmol/L Carbon Dioxide 27.4 (21.0-32.0) mmol/L BUN 15 (7.0-18.0) mg/dL Creatinine 1.1 (0.8-1.3) mg/dL Est Cr Clr Drug Dosing 104.84 mL/min Estimated GFR (MDRD) > 60.0 ml/min Glucose 166 H (74-106) mg/dL POC Glucose 109 (60-110) mg/dL Calcium 8.2 L (8.5-10.1) mg/dL Phosphorus (2.6-4.7) mg/dL Magnesium 1.6 L (1.8-2.4) mg/dL Total Bilirubin 1.3 H (0.2-1.0) mg/dL AST 21 (15-37) IU/L ALT 57 (14-63) IU/L Alkaline Phosphatase 63 (46-116) U/L Total Protein 7.3 (6.4-8.2) g/dL Albumin 3.4 (3.4-5.0) g/dL Globulin 3.9 (2.6-4.0) g/dL Albumin/Globulin Ratio 0.9 (0.9-1.6) 10/08/19 10/08/19 Range/Units 06:13 06:22 WBC (4.0-11.0) K/uL RBC (4.50-5.90) M/uL Hgb (13.0-17.0) g/dL Hct (38.0-50.0) % MCV (80.0-98.0) fL MCH (27.0-32.0) pg MCHC (31.0-37.0) g/dL RDW Std Deviation (28.0-62.0) fl RDW Coeff of [place] (11.0-15.0) % Plt Count (150-400) K/uL MPV (7.40-12.00) fL Neut % (Auto) (48.0-80.0) % Lymph % (Auto) (16.0-40.0) % [place] % (Auto) (0.0-15.0) % Eos % (Auto) (0.0-7.0) % Baso % (Auto) (0.0-1.5) % Neut # (Auto) (1.4-5.7) K/uL Lymph # (Auto) (0.6-2.4) K/uL [place] # (Auto) (0.0-0.8) K/uL Eos # (Auto) (0.0-0.7) K/uL Baso # (Auto) (0.0-0.1) K/uL Nucleated RBC % /100WBC Nucleated RBCs # K/uL Sodium 141 (136-148) mmol/L Potassium 4.0 (3.5-5.1) mmol/L Chloride 108 H (98-107) mmol/L Carbon Dioxide 26.2 (21.0-32.0) mmol/L BUN 15 (7.0-18.0) mg/dL Creatinine 0.9 (0.8-1.3) mg/dL Est Cr Clr Drug Dosing 128.31 mL/min Estimated GFR (MDRD) > 60.0 ml/min Glucose 116 H (74-106) mg/dL POC Glucose 103 (60-110) mg/dL Calcium 7.9 L (8.5-10.1) mg/dL Phosphorus 2.1 L (2.6-4.7) mg/dL Magnesium 2.0 (1.8-2.4) mg/dL Total Bilirubin (0.2-1.0) mg/dL AST (15-37) IU/L ALT (14-63) IU/L Alkaline Phosphatase (46-116) U/L Total Protein (6.4-8.2) g/dL Albumin (3.4-5.0) g/dL Globulin (2.6-4.0) g/dL Albumin/Globulin Ratio (0.9-1.6) Med Orders - Current: Current Medications Albuterol/Ipratropium (Duoneb 3.0-0.5 Mg/3 Ml) 3 ml NEB Q4HRRT PRN PRN Reason: Shortness Of Breath/wheezing Sodium Chloride (Normal Saline) 1,000 mls @ 125 mls/hr IV ASDIRECTED [facility] Last Admin: 10/08/19 06:24 Dose: 125 mls/hr Ceftriaxone Sodium/Dextrose 1 (gm/ Premix) 50 mls @ 100 mls/hr IV Q24H [facility] Last Admin: 10/08/19 08:37 Dose: 100 mls/hr Insulin Aspart (Novolog) 0 unit SUBCUT TIDAC [facility]; Protocol Last Admin: 10/08/19 06:29 Dose: Not Given Ketorolac Tromethamine (Toradol) 30 mg IV Q6H PRN PRN Reason: Pain (moderate 4-6) Last Admin: 10/07/19 23:20 Dose: 30 mg Ondansetron HCl (Zofran) 4 mg IVPUSH Q4H PRN PRN Reason: Nausea/Vomiting Discontinued Medications Ceftriaxone Sodium (Rocephin) 1 gm IVPUSH ONETIME ONE Stop: 10/07/19 13:47 Last Admin: 10/07/19 14:28 Dose: Not Given Sodium Chloride (Normal Saline) 1,000 mls @ 999 mls/hr IV STAT ONE Stop: 10/07/19 12:07 Last Admin: 10/07/19 11:50 Dose: 999 mls/hr Levofloxacin/Dextrose 750 mg/ (Premix) 150 mls @ 100 mls/hr IV Q24H [facility] Ceftriaxone Sodium/Dextrose 1 (gm/ Premix) 50 mls @ 100 mls/hr IV ONETIME ONE Stop: 10/07/19 14:42 Last Admin: 10/07/19 14:18 Dose: 100 mls/hr Iopamidol (Isovue Multipack-370 (76%)) 100 ml IVPUSH ONETIME ONE Stop: 10/07/19 12:09 Last Admin: 10/07/19 12:09 Dose: 100 ml Magnesium Oxide (Magnesium Oxide) 800 mg PO ONETIME ONE Stop: 10/07/19 14:40 Last Admin: 10/07/19 15:35 Dose: 800 mg Polyethylene Glycol (Miralax) 17 gm PO ONETIME ONE Stop: 10/08/19 10:28 Last Admin: 10/08/19 10:40 Dose: 17 gm
[2019-10-08 11:34] VITALS: BP 135/81; PULSE 86
== END 2019-10-08 11:40 | disposition home or self-care (01) ==
LOC: MW.ED 10:10 → MW.MS 14:13
PROVIDERS: ADMIT Student in an Organized Health Care Education/Training Program; ATTEND Student in an Organized Health Care Education/Training Program
DX: N10 Acute pyelonephritis (principal); E11.9 Type 2 diabetes mellitus without complications; Z79.84 Long term (current) use of oral hypoglycemic drugs
CPT/HCPCS: 36415; 71046; 74177; 80048; 80053; 81001; 82962; 83735; 84100; 85025; 87040; 87086; 87088; 87186; 96365; 99285; A9270; J0696; J1815; J1885; J7030; Q9967; 99284